=== PATIENT | female | born 1985 | race Caucasian/White ===

== ENCOUNTER 2019-02-07 05:01 | Inpatient (IN) ==
[~2019-02-07 05:01] MED LIST: CITRIC ACID/SODIUM CITRATE 30 ML CUP PO ONE; CefOXitin Inj 2 GM in Sodium Chloride 0.9% 100 ML IV ONE; FAMOTIDINE 20 MG/2 ML VIAL IVP ONE; LIDOCAINE HCL 2 % 10 ML JELLY URO-JECT TOPICAL PRN; LIDOCAINE W/ SODIUM BICARB 0.5 ML SYR SUBD PRN; Lactated Ringers 1,000 ML PRIMARY IV ONE; Metoclopramide Inj 10 MG/2 ML VIAL IV ONE; Oxytocin 20 Units + LR 20 UNIT/1,000 ML BAG IV SCH
[2019-02-07 05:39] LABS: Hematocrit [HCT] 37.6 % (37.0-47.0); Hemoglobin [HGB] 12.8 g/dL (12.0-16.0); MEAN CORPUSCULAR HEMOGLOBIN 29.7 PG (27-31); MEAN CORPUSCULAR VOLUME 87.2 FL (81-99); MEAN PLATELET VOLUME 10.3 FL (7.4-12.2); RED BLOOD COUNT 4.31 10^6/uL (4.20-5.40)
[2019-02-07] MEDS ORDERED: Lactated Ringers 1,000 ML PRIMARY IV SCH (06:00)
[2019-02-07] MEDS ORDERED: MORPHINE SULFATE/PF 10 MG/10 ML AMPULE ONE (06:32)
[2019-02-07] MEDS ORDERED: Sodium Chloride 0.9% vial 10 ML ONE (06:35)
[2019-02-07] MEDS ORDERED: OXYTOCIN 10 UNIT/1 ML ONE (06:35)
[2019-02-07] MEDS ORDERED: ePHEDrine Inj 50 MG/ML AMP ONE (06:35)
[2019-02-07] MEDS ORDERED: fentaNYL Inj 100 MCG/2 ML VIAL ONE (06:54)
[2019-02-07] MEDS ORDERED: KETOROLAC 30 MG/1 ML VIAL ONE (07:42)
[2019-02-07] MEDS ORDERED: Nalbuphine Inj 20 MG/ML Ampule ONE (07:56)
[2019-02-07] MEDS: Nalbuphine Inj 20 MG/ML Ampule IVP PRN ×2 (08:05→08:30)
--- NOTE | 2019-02-07 08:08 | OB.OP.NOTE ---
Operative Report Surgeon: Dr. Cowan Console Attendant: Bjorn Diop MD, Gaudencio Dinero MD Anesthesia Type: Regional Anesthesia Provider: Mahin Bryson CRNA Surgery Date: 02/07/19 Preoperative Diagnosis: 39 week IUP, Previous x5, Desires Sterilization Postoperative Diagnosis: Same Procedure: Repeat LTCS, PPTL with Bilateral Salpingectomy Estimated Blood Loss (mL): 600 Fluids: 500 ml Complications: None identified Findings at Surgery: Viable male infant in vertex presentation. Apgars 8/10. Weight 8 lbs 14 oz. Normal uterus, tubes and ovaries. Indications for the Procedure: Previous delivery x5. Description of Procedure: See dictated operative report. Plan: Routine postop/ care.
[2019-02-07] MEDS ORDERED: Nalbuphine Inj 20 MG/ML Ampule IVP PRN (08:09)
[2019-02-07] MEDS ORDERED: HYDROmorphone 2 MG/1 ML IVP PRN (08:09)
[2019-02-07] MEDS ORDERED: LIDOCAINE W/ SODIUM BICARB 0.5 ML SYR SUBD PRN (08:09)
--- NOTE | 2019-02-07 08:11 | CRNA.PROGR ---
Anesthesia Time - Procedure/Recovery Time Start Date: 02/07/19 End Date: 02/07/19 Anesthesia : Time In: 07:05 Anesthesia : Time Out: 08:09 Anesthesia : Total Time: 64 - Total Anesthesia Time Total Anesthesia Time (minutes): 64 - Other Weight: 115.212 kg Height: 5 ft 8 in Body Mass Index (BMI): 38.6 Physical Status: P2 Anesthesia Type: Spinal Block Obstetrics: C/S anesthesia only
--- NOTE | 2019-02-07 08:13 | CRNA.PROCE ---
Central Neuraxis Block Placemt - - Safety Measures: Time Out Taken - - Type of Block: Subarachnoid Reason for Block: Surgical Moniters Used During Block: EKG, SPO2, NIBP Skin Prep Used: ChloroPrep Draped: No Skin Infiltration - Enter Amount Used in Comment Field: 1% Xylocaine (mL): Yes (skin wheal) Spinal Needle Used: 25 Meryl 80 mm Local Anesthetic - Enter Amount Used in Comment Field: 0.75 % Bupivacaine with Dextrose (ml): Yes (2ml) Additive Used - Enter Amount Used in Comment Field: Fentanyl (mcg): Yes (15mcg) Anesthesia Time - Other Weight: 115.212 kg Height: 5 ft 8 in Body Mass Index (BMI): 38.6
--- NOTE | 2019-02-07 08:13 | CRNA.PROGR ---
Anesthesia Recovery Phase I - Post Anesthesia Evaluation Patient's Condition on Arrival in Phase I: Stable Pain Level: 0
[2019-02-07] MEDS ORDERED: CALCIUM CARBONATE 500 MG (TUMS) CHEWABLE TABLET PO PRN (08:46)
[2019-02-07] MEDS ORDERED: Naloxone Inj 0.01 MG, Sodium Chloride 0.9% vial 1 ML IVP PRN ×2 (08:46)
[2019-02-07] MEDS ORDERED: LANOLIN HPA 40 GM TUBE TOPICAL PRN (08:46)
[2019-02-07] MEDS ORDERED: BUTORPHANOL TARTRATE 2 MG/1 ML VIAL IVP PRN (08:46)
[2019-02-07] MEDS ORDERED: diphenhydrAMINE 50 MG/1 ML VIAL IV PRN (08:46)
[2019-02-07] MEDS ORDERED: FAMOTIDINE 20 MG/2 ML VIAL IVP PRN (08:46)
[2019-02-07] MEDS ORDERED: HYDROmorphone 2 MG/1 ML IV PRN (08:46)
[2019-02-07] MEDS ORDERED: ONDANSETRON 4 MG/2 ML VIAL IVP PRN (08:46)
[2019-02-07] MEDS ORDERED: D5-LR 1,000 ML PRIMARY IV SCH (08:46)
[2019-02-07] MEDS ORDERED: Oxytocin 20 Units + LR 20 UNIT/1,000 ML BAG IV SCH (08:46)
[2019-02-07] MEDS: oxyCODONE-ACETAMINOPHEN 5-325 TAB PO PRN ×3 (10:49→19:52)
[2019-02-07] MEDS: KETOROLAC 15 MG/1 ML VIAL IVP SCH ×2 (14:14→19:37)
[2019-02-08] MEDS: oxyCODONE-ACETAMINOPHEN 5-325 TAB PO PRN ×5 (00:25→17:50)
[2019-02-08] MEDS: KETOROLAC 15 MG/1 ML VIAL IVP SCH ×2 (01:06→07:34)
[2019-02-08] MEDS ORDERED: ENOXAPARIN SODIUM 40 MG/0.4 ML SYRINGE SUBCUT SCH (05:00)
[2019-02-08] MEDS: ENOXAPARIN SODIUM 60 MG/0.6 ML SYRINGE SUBCUT SCH (05:05)
[2019-02-08 05:55] LABS: Hematocrit [HCT] 30.7 % (37.0-47.0); Hemoglobin [HGB] 10.2 g/dL (12.0-16.0); MEAN CORPUSCULAR HEMOGLOBIN 29.7 PG (27-31); MEAN CORPUSCULAR HGB CONC 33.2 g/dL (33-37); MEAN CORPUSCULAR VOLUME 89.5 FL (81-99); MEAN PLATELET VOLUME 10.5 FL (7.4-12.2); RED BLOOD COUNT 3.43 10^6/uL (4.20-5.40)
--- NOTE | 2019-02-08 07:22 | OB.PROGRES ---
Subjective Post Day: 1 Pain Management: PO Carbajal Catheter: Yes Flatus: Yes Lochia Color: Rubra/Red Small 10-25 ml Diet: Regular Feeding Method: Exculsively Ambulating: Yes Objective - General General Appearance: POSITIVE: No Acute Distress, Cooperative - Cardiovacular Cardiovascular Exam: POSITIVE: RRR Edema: +1 Pedal Edema Extremities: Negative Luis Carlos's - Bilaterally - Respiratory Respiratory Exam: POSITIVE: Clear to Auscultation - Bilaterally, Breathing Non Labored - Abdomen Bowel Sounds: Present Abdominal Wound Assessment: Silverlone Dressing - Fundus/Lochia/Perineum Uterus Consistency: Firm Uterus Position: POSITIVE: At Umbilicus Lochia Amount: Small 10-25 ml Assesstment / Plan (1) Status post repeat low transverse section Status: Acute (2) Gestational diabetes mellitus (GDM) affecting sixth Status: Acute (3) Advanced maternal age (AMA) in Status: Acute (4) Obesity affecting in third trimester Status: Acute Support Text: 33 yo G7 now P6016 POD 1 s/p repeat LTCS with BTL via salpingectomy. -Pain well controlled, did not use duromorph 2/2 morphine allergy, doing ok on po percocet -Breast feeding -Blood sugars stable, ok to d/c qachs blood sugar checks. Will need a 2 hour OGTT -Allergy to adhesives, used metal alla, no steristrips, did not use traditional silverlon adhesive dressing, just silver component with ABD and paper tape - so far no e/o reaction -Lovenox 60mg SC BID for prophylaxis
[2019-02-08] MEDS: Senna/Docusate Tab 1 TAB TAB PO SCH ×2 (09:19→20:37)
[2019-02-08] MEDS: Prenatal Multivitamin Tab 1 TAB TAB PO SCH (09:20)
--- NOTE | 2019-02-08 09:26 | CRNA.PROGR ---
Anesthesia Note - Progress Notes Anesthesia Progress Note: Post OP Anesthesia note Pt is sitting up in bed, a\she has been up ambulating, up to the restroom, tolerating a regular diet. The only pain that is bothering her is some right sided pain, described as nagging. Current VS are stable. Vital Signs - Last Taken Temperature 98.7 F 02/08/19 06:53 Pulse Rate 76 02/08/19 06:53 Respiratory Rate 16 02/08/19 06:53 Blood Pressure 129/89 02/08/19 06:53 Pulse Ox 96 02/08/19 06:53
[2019-02-08] MEDS: IBUPROFEN 800 MG TABLET PO SCH ×2 (13:47→20:36)
[2019-02-08] MEDS ORDERED: HYDROCORTISONE CREAM 2.5% 30 GM TUBE TOPICAL PRN (15:14)
[2019-02-08] MEDS: FAMOTIDINE 40 MG TABLET PO SCH (15:38)
[2019-02-08] MEDS: SIMETHICONE 80 MG TABLET PO PRN (20:37)
[2019-02-08] MEDS: diphenhydrAMINE 25 MG CAPSULE PO PRN (20:37)
[2019-02-08] MEDS: HYDROcodone-APAP 10 MG-325 MG TABLET PO PRN (22:37)
[2019-02-09] MEDS: HYDROcodone-APAP 10 MG-325 MG TABLET PO PRN ×5 (02:11→21:05)
[2019-02-09] MEDS: SIMETHICONE 80 MG TABLET PO PRN ×3 (02:12→21:05)
[2019-02-09] MEDS: diphenhydrAMINE 25 MG CAPSULE PO PRN ×2 (02:13→21:06)
[2019-02-09] MEDS: ENOXAPARIN SODIUM 60 MG/0.6 ML SYRINGE SUBCUT SCH (05:33)
[2019-02-09] MEDS: IBUPROFEN 800 MG TABLET PO SCH ×3 (05:33→21:06)
[2019-02-09] MEDS: Senna/Docusate Tab 1 TAB TAB PO SCH ×2 (08:49→21:06)
[2019-02-09] MEDS: FAMOTIDINE 40 MG TABLET PO SCH (08:49)
[2019-02-09] MEDS: Prenatal Multivitamin Tab 1 TAB TAB PO SCH (08:50)
[2019-02-10] MEDS: HYDROcodone-APAP 10 MG-325 MG TABLET PO PRN ×3 (02:22→14:35)
[2019-02-10] MEDS: ENOXAPARIN SODIUM 60 MG/0.6 ML SYRINGE SUBCUT SCH (05:30)
[2019-02-10] MEDS: IBUPROFEN 800 MG TABLET PO SCH ×2 (05:31→13:29)
[2019-02-10] MEDS: SIMETHICONE 80 MG TABLET PO PRN ×2 (08:24→14:36)
[2019-02-10] MEDS: Senna/Docusate Tab 1 TAB TAB PO SCH (09:04)
[2019-02-10] MEDS: Prenatal Multivitamin Tab 1 TAB TAB PO SCH (09:04)
[2019-02-10] MEDS: FAMOTIDINE 40 MG TABLET PO SCH (09:04)
[2019-02-10 09:41] VITALS: BP 126/87; RESP 18; TEMP 97.8; O2SAT 97
[2019-02-10] MEDS: NYSTATIN 15 GM POWDER TOPICAL SCH ×2 (12:49→13:15)
[2019-02-10] MEDS ORDERED: FERROUS GLUCONATE 240 MG PO SCH (14:15)
--- NOTE | 2019-02-16 13:42 | DCSUMMARY ---
Hospitalization Summary Admit Date: 02/07/19 Discharge Date: 02/10/19 Primary Diagnosis:: repeat LTCS with sterilization via b/l salpingectomy Secondary Diagnosis:: Gestational DM Primary Surgery and Date: 02/07/19, repeat LTCS with b/l salpingectomy Delivery Type: Hospital Course: 33 yo G7now P6 was admitted at 39 2/7 weeks for repeat LTCS. She did have some adhesive disease but the procedure went well. By POD 1 morning she did have some erythema and itching of her abdomen. She was treated with pepcid, benadryl and topical hydrocortisone, ice with minimal improvement. / Postop Complications: Rash across abdomen, likely combination of reaction to surgical prep and adhesive Complications: none apparent Exam - Vitals Vital Signs: Vital Signs Temperature 97.8 F Temperature Source Oral Pulse Rate [Apical] 84 Pulse Rate [Pulse Oximeter] 78 Pulse Rate 86 Respiratory Rate 18 Blood Pressure [Left Arm] 126/87 Blood Pressure 123/80 Pulse Ox 97 Oxygen Flow Rate RA Oxygen Delivery Method Room Air Height 5 ft 8 in Weight 254 lb - General General Appearance: No Acute Distress, Cooperative - Head Head Exam: Normal Inspection - Eye Eye Exam: POSITIVE: Normal Appearance - Respiratory Respiratory Exam: POSITIVE: Clear to Auscultation - Bilaterally, Breathing Non Labored - Cardiovascular Cardiovascular Exam: POSITIVE: RRR - GI/Abdominal GI/Abdominal Exam: POSITIVE: Normal Bowel Sounds Additional GI/Abdominal Exam Details: uterus firm below umbilius. Incision c/d/i - Extremities Extremities Exam: POSITIVE: Negative Luis Carlos's sign, +1 Edema. NEGATIVE: Calf Tenderness - Psychiatric Psychiatric Exam: POSITIVE: Normal Affect, Normal Mood - Integumentary Additional Integumentary Exam Details: Erythematous rash to entire abdomen, looks improved today Data Peritnent Studies: 02/07/19 02/08/19 05:30 05:07 WBC 8.50 8.17 Hgb 12.8 10.2 L Hct 37.6 30.7 L Plt Count 259 198 Patient Problems - Patient Problem List (1) Status post repeat low transverse section Status: Acute Code(s): Z98.891 - History of uterine scar from previous surgery Category: Surgical (2) Gestational diabetes mellitus (GDM) affecting sixth Status: Acute Code(s): O24.419 - Gestational diabetes mellitus in , unspecified control; O09.40 - Supervision of with grand multiparity, unspecified trimester Category: Medical (3) Advanced maternal age (AMA) in Status: Acute Category: Medical (4) Obesity affecting in third trimester Status: Acute Code(s): O99.213 - Obesity complicating , third trimester Support Text: 33 yo G7 now P6 s/p 6th section. -Breast feeding well -D/c to home today with hydrocodone 10/325, motrin 800 mg, docusate, topical steroid solution -F/u on Thursday for incision check and staple removal, sent home with silverlon and meplex. To use pepcid 20 mg po bid and benadryl as tolerated. Category: Medical
--- NOTE | 2019-02-16 17:09 | OB.PROGRES ---
Subjective Post Day: 2 Pain Management: PO Carbajal Catheter: No Flatus: Yes Lochia Color: Rubra/Red Small 10-25 ml Diet: Regular Feeding Method: Exculsively Ambulating: Yes Concerns / Additional Information: Pruritic rash to abdomen, entire abdomen where prep was Breast feeding is going well Objective - General General Appearance: POSITIVE: No Acute Distress, Cooperative - Cardiovacular Cardiovascular Exam: POSITIVE: RRR Edema: +1 Pedal Edema Extremities: Negative Luis Carlos's - Bilaterally - Respiratory Respiratory Exam: POSITIVE: Clear to Auscultation - Bilaterally, Breathing Non Labored - Abdomen Bowel Sounds: Present Abdominal Wound Assessment: Open to air, Clean/Dry Other Abdominal Exam Details: Erythematous rash to entire abdomen, worse in creases/folds of skin. Small blisters inferior to R side of incision - Fundus/Lochia/Perineum Uterus Consistency: Firm Uterus Position: POSITIVE: Below Umbilicus Assesstment / Plan (1) Status post repeat low transverse section Status: Acute (2) Gestational diabetes mellitus (GDM) affecting sixth Status: Acute (3) Advanced maternal age (AMA) in Status: Acute (4) Obesity affecting in third trimester Status: Acute Support Text: 33 yo G7 now [id number] POD 2 s/p repeat LTCS with BTL via salpingectomy. -Pain well controlled, did not use duromorph 2/2 morphine allergy -Breast feeding -Will need a 2 hour OGTT -Allergy to adhesives, used metal alla, no steristrips, now with what looks like allergic contact dermatitis and maybe a fungal component in the creases. To use nystatin powder and hydrocortisone topical, pepcid and benadryl -Lovenox 60mg SC BID for prophylaxis
== END 2019-02-10 14:59 | disposition home or self-care (01) | DRG 785 ==
LOC: OBOR 05:01 → OBIP 08:35
PROVIDERS: ADMIT Obstetrics & Gynecology; ATTEND Student in an Organized Health Care Education/Training Program